=== PATIENT | male | born 1990 | race Caucasian/White ===

== ENCOUNTER 2022-09-24 15:00 | Inpatient (IN) | payer OTHER ==
[2022-09-24 15:30] VITALS: BMI 20.9
[2022-09-24] MEDS ORDERED: P-EPHED 60MG/TRIPROLIDI 2.5MG TABLET PO PRN (17:56)
[2022-09-24] MEDS ORDERED: BISMUTH SUBSALICYLATE 524 MG/30 ML PO PRN (17:56)
[2022-09-24] MEDS ORDERED: IBUPROFEN 400 MG TABLET (FP) PO PRN (17:56)
[2022-09-24] MEDS ORDERED: MAG HYDROX/AL HYDROX/SIMETH 30 ML UNIT-DOSE CUP PO PRN (17:56)
[2022-09-24] MEDS ORDERED: ACETAMINOPHEN 325 MG TABLET (FP) PO PRN (17:56)
[2022-09-24] MEDS ORDERED: NALOXONE HCL 0.4 MG/ML VIAL IM PRN (17:56)
[2022-09-24] MEDS ORDERED: POLYETHYLENE GLYCOL (HEALTHYLAX) 3350 17 GM PACKET PO PRN (17:56)
[2022-09-24] MEDS ORDERED: LOPERAMIDE HCL 2 MG CAPSULE PO PRN (17:56)
[2022-09-24] MEDS ORDERED: NALOXONE HCL (KLOXXADO) 8 MG SPRAY NS PRN (17:56)
[2022-09-24] MEDS ORDERED: BENZONATATE 200 MG CAPSULE PO PRN (17:56)
[2022-09-24] MEDS ORDERED: NICOTINE POLACRILEX 2 MG GUM BUC PRN (17:56)
[2022-09-24] MEDS ORDERED: guaiFENesin 600 MG TABLET.ER (FP) PO PRN (17:56)
[2022-09-24] MEDS ORDERED: MAGNESIUM HYDROX 2400MG/30ML ORAL SUSPENSION 30 ML CUP PO PRN (17:56)
[2022-09-24] MEDS ORDERED: BENZOCAINE/MENTHOL (CHLORASEPTIC ) LOZENGE MM PRN (17:56)
[2022-09-24] MEDS ORDERED: ONDANSETRON *ODT* 4 MG TABLET SL PRN (17:56)
[2022-09-24] MEDS ORDERED: ALBUTEROL SO4 0.083% IH SOL 2.5 MG/3 ML VIAL.NEB. NEB ONE (18:21)
[2022-09-24] MEDS ORDERED: ALBUTEROL SO4 0.083% IH SOL 2.5 MG/3 ML VIAL.NEB. NEB PRN (22:00)
[2022-09-24] MEDS: THIAMINE HCL 100 MG TABLET (FP) PO SCH (22:23)
[2022-09-24] MEDS: MELATONIN 5 MG TABLETS PO PRN (22:23)
[2022-09-24] MEDS: METHOCARBAMOL 500 MG TABLET PO PRN (22:24)
[2022-09-24] MEDS: NICOTINE 10 MG CARTRIDGE (INHALER) IH PRN (22:43)
[2022-09-25] MEDS: PRENATAL VITAMINS W/ FOLIC ACID TABLET (FP) PO SCH (09:42)
[2022-09-25] MEDS ORDERED: methaDONE HCL 10 MG TABLET (FOR DETOX USE ONLY) PO ONE (10:39)
[2022-09-25] MEDS: METHOCARBAMOL 500 MG TABLET PO PRN ×2 (11:10→22:07)
[2022-09-25 11:37] LABS: HEMATOCRIT 46.6 % (35.4-49); HEMOGLOBIN 15.5 GM/dL (11.7-16.9); MCH 32.2 pg (25.7-33.7); MCHC 33.2 g/dl (32.0-35.9); MEAN CELL VOLUME 96.9 fl (80-96); PLATELET COUNT 291 10^3/uL (134-434); RBC 4.81 M/mm3 (4.00-5.60); RDW 13.2 % (11.9-15.9); WHITE BLOOD COUNT 8.2 K/mm3 (4.0-10.0)
[2022-09-25 11:42] LABS: POTASSIUM 4.1 mmol/L (3.5-5.1)
[2022-09-25 11:46] LABS: ALBUMIN 3.3 g/dl (3.4-5.0); BLOOD UREA NITROGEN 10.9 mg/dL (7-18); CALCIUM 9.2 mg/dL (8.5-10.1)
[2022-09-25 11:50] LABS: BILIRUBIN,TOTAL 0.9 mg/dL (0.2-1); CREATININE 0.7 mg/dL (0.55-1.3); TOT PROT 6.5 g/dl (6.4-8.2)
[2022-09-25] MEDS: IBUPROFEN 600 MG TABLET (FP) PO PRN (17:57)
[2022-09-25] MEDS: hydrOXYzine PAMOATE 25 MG CAPSULE (FP) PO PRN (17:57)
[2022-09-25] MEDS: MELATONIN 5 MG TABLETS PO PRN (22:07)
[2022-09-25] MEDS: THIAMINE HCL 100 MG TABLET (FP) PO SCH (22:07)
[2022-09-26] MEDS: METHOCARBAMOL 500 MG TABLET PO PRN ×2 (05:36→22:25)
[2022-09-26] MEDS: DICYCLOMINE HCL 10 MG CAPSULE PO PRN (05:38)
[2022-09-26] MEDS: cloNIDine HCL 0.1 MG TABLET PO PRN (07:50)
[2022-09-26] MEDS: PRENATAL VITAMINS W/ FOLIC ACID TABLET (FP) PO SCH (09:58)
[2022-09-26] MEDS: MELATONIN 5 MG TABLETS PO PRN (22:25)
[2022-09-26] MEDS: THIAMINE HCL 100 MG TABLET (FP) PO SCH (22:25)
[2022-09-26] MEDS: hydrOXYzine PAMOATE 25 MG CAPSULE (FP) PO PRN (22:25)
[2022-09-27] MEDS ORDERED: methaDONE HCL 10 MG TABLET (FOR DETOX USE ONLY) PO ONE (10:00)
[2022-09-27] MEDS: PRENATAL VITAMINS W/ FOLIC ACID TABLET (FP) PO SCH (10:03)
[2022-09-27] MEDS: METHOCARBAMOL 500 MG TABLET PO PRN ×2 (10:06→22:36)
[2022-09-27] MEDS: hydrOXYzine PAMOATE 25 MG CAPSULE (FP) PO PRN ×2 (10:06→17:57)
[2022-09-27] MEDS ORDERED: diazePAM 5 MG TABLET PO ONE (11:56)
[2022-09-27] MEDS: cloNIDine HCL 0.1 MG TABLET PO PRN (12:18)
[2022-09-27] MEDS: THIAMINE HCL 100 MG TABLET (FP) PO SCH (22:36)
[2022-09-27] MEDS: MELATONIN 5 MG TABLETS PO PRN (22:36)
[2022-09-28] MEDS: DICYCLOMINE HCL 10 MG CAPSULE PO PRN (06:55)
[2022-09-28] MEDS: PRENATAL VITAMINS W/ FOLIC ACID TABLET (FP) PO SCH (10:15)
[2022-09-28] MEDS: IBUPROFEN 600 MG TABLET (FP) PO PRN (10:18)
[2022-09-28] MEDS: hydrOXYzine PAMOATE 25 MG CAPSULE (FP) PO PRN ×2 (10:19→21:49)
[2022-09-28] MEDS: METHOCARBAMOL 500 MG TABLET PO PRN ×2 (10:19→21:48)
[2022-09-28] MEDS: MELATONIN 5 MG TABLETS PO PRN (21:48)
[2022-09-28] MEDS: THIAMINE HCL 100 MG TABLET (FP) PO SCH (21:50)
[2022-09-28] MEDS: NICOTINE 10 MG CARTRIDGE (INHALER) IH PRN (22:07)
[2022-09-29] MEDS ORDERED: methaDONE HCL 10 MG TABLET (FOR DETOX USE ONLY) PO ONE (10:00)
[2022-09-29] MEDS: PRENATAL VITAMINS W/ FOLIC ACID TABLET (FP) PO SCH (10:28)
[2022-09-29] MEDS: IBUPROFEN 600 MG TABLET (FP) PO PRN (10:30)
[2022-09-29] MEDS: hydrOXYzine PAMOATE 25 MG CAPSULE (FP) PO PRN ×2 (10:31→22:08)
[2022-09-29] MEDS: METHOCARBAMOL 500 MG TABLET PO PRN ×2 (10:31→22:08)
[2022-09-29] MEDS ORDERED: diazePAM 5 MG TABLET PO ONE (18:40)
[2022-09-29 19:22] VITALS: RESP 18
[2022-09-29] MEDS: MELATONIN 5 MG TABLETS PO PRN (22:08)
[2022-09-29] MEDS: THIAMINE HCL 100 MG TABLET (FP) PO SCH (22:08)
[2022-09-29 23:09] VITALS: BP 107/62; PULSE 66; TEMP 97.8
== END 2022-09-29 23:40 | disposition left against medical advice (07) | DRG 770 ==
LOC: YASAS 15:00 → Y3N 18:21
PROVIDERS: ADMIT Allergy & Immunology; ATTEND Surgery
PROC: HZ2ZZZZ Detoxification Services for Substance Abuse Treatment (ICD-10-PCS; principal; 2022-09-24)
DX: F11.23 Opioid dependence with withdrawal (principal); F12.20 Cannabis dependence, uncomplicated; F17.210 Nicotine dependence, cigarettes, uncomplicated; F41.9 Anxiety disorder, unspecified; Z28.310 Unvaccinated for COVID-19; Z28.9 Immunization not carried out for unspecified reason; Z56.0 Unemployment, unspecified; Z59.00 Homelessness unspecified
CPT/HCPCS: 36415; 80053; 85027; 86780; 87635; 93005; 93010; 94640